=== PATIENT | male | born 1970 ===

== ENCOUNTER → 2017-11-19 | Outpatient (CLI) | payer OTHER ==
[~2017-11-19] VITALS: Ht 165.1 cm; Wt 77.0 kg
[~2017-11-19] MED LIST: ALBU8HFA IH; ASPI81 PO; FLUC100T PO; LISI-660 PO
[2017-11-19 13:56] VITALS: BP 117/73
== END | disposition home or self-care (01) ==
LOC: SRCNTR 13:52
PROVIDERS: ATTEND Internal Medicine
DX: R91.8 Other nonspecific abnormal finding of lung field (principal); I10 Essential (primary) hypertension; E78.5 Hyperlipidemia, unspecified
CPT/HCPCS: G0463

== ENCOUNTER → 2018-01-21 | Outpatient (CLI) | payer OTHER ==
[~2018-01-21] VITALS: Ht 165.1 cm; Wt 78.0 kg
[2018-01-21 14:08] VITALS: BP 151/92
== END | disposition home or self-care (01) ==
LOC: SRCNTR 14:05
PROVIDERS: ATTEND Internal Medicine
DX: B38.2 Pulmonary coccidioidomycosis, unspecified (principal); R91.8 Other nonspecific abnormal finding of lung field; Z79.82 Long term (current) use of aspirin
CPT/HCPCS: G0463